=== PATIENT | female | born 1955 | race Caucasian/White ===

== ENCOUNTER 2020-05-10 13:29 | Emergency (ER) | payer OTHER ==
[2020-05-10] MEDS ORDERED: ACETAMINOPHEN 500 MG TABLET (FP) PO ONE (13:37)
[2020-05-10 13:59] VITALS: BP 132/69; PULSE 88; TEMP 99.7; BMI 26.2
[2020-05-10] MEDS ORDERED: ACETAMINOPHEN 500 MG TABLET (FP) ONE (13:59)
== END 2020-05-10 17:09 | disposition home or self-care (01) ==
LOC: FER 13:29
DX: S89.92XA Unspecified injury of left lower leg, initial encounter (principal); R26.2 Difficulty in walking, not elsewhere classified; W19.XXXA Unspecified fall, initial encounter
CPT/HCPCS: 73564-TC-LT-FY; 73590-TC-LT-FY; 73700-TC-RT; 99284-25

== ENCOUNTER 2022-09-01 16:21 | Emergency (ER) | payer OTHER ==
[2022-09-01 16:54] VITALS: BP 111/50; PULSE 100; RESP 16; TEMP 98.6; BMI 25.0
[2022-09-01] MEDS ORDERED: SODIUM CHLORIDE 0.9% 1000 ML INFUS.BAG IV ONE (17:11)
[2022-09-01] MEDS ORDERED: ONDANSETRON 4 MG/2 ML VIAL IVPUSH ONE (17:11)
[2022-09-01] MEDS ORDERED: ONDANSETRON 4 MG/2 ML VIAL ONE (17:21)
[2022-09-01 17:40] LABS: HEMATOCRIT 46.4 % (32.4-45.2); HEMOGLOBIN 15.6 G/dL (10.7-15.3); MCH 31.2 pg (25.7-33.7); MCHC 33.5 g/dl (32.0-36.0); MEAN CELL VOLUME 92.9 fl (80-96); MEAN PLT VOLUME 8.1 fl (7.5-11.1); PLATELET COUNT 303.5 10^3/uL (134-434); RBC 4.99 10^6/uL (3.60-5.2); RDW 13.8 % (11.6-15.6); WHITE BLOOD COUNT 16.2 10^3/uL (4.0-10.8)
[2022-09-01 17:52] LABS: ALBUMIN 4.3 g/dl (3.4-5.0); BILIRUBIN,TOTAL 0.5 mg/dl (0.2-1); CALCIUM 8.6 mg/dl (8.5-10); CREATININE 0.5 mg/dl (0.55-1.3); POTASSIUM 3.7 mmol/L (3.5-5.1); TOT PROT 7.4 g/dl (6.4-8.2)
[2022-09-01] MEDS ORDERED: ALBUTEROL SO4 2.5/IPRATROPIUM 0.5 INH SOL 3 ML VIAL.NEB. NEB ONE ×2 (18:37→18:43)
[2022-09-01 18:59] LABS: PLATELET ESTIMATE ADEQUATE
== END 2022-09-01 20:01 | disposition home or self-care (01) ==
LOC: FER 16:21
PROC: 3E033GC Introduction of Other Therapeutic Substance into Peripheral Vein, Percutaneous Approach (ICD-10-PCS; principal; 2022-09-01)
PROC: 3E0F7GC Introduction of Other Therapeutic Substance into Respiratory Tract, Via Natural or Artificial Opening (ICD-10-PCS; 2022-09-01)
DX: R50.9 Fever, unspecified (principal); R05.9 Cough, unspecified; R11.2 Nausea with vomiting, unspecified; R06.02 Shortness of breath; J40 Bronchitis, not specified as acute or chronic; Z20.822 Contact with and (suspected) exposure to COVID-19
CPT/HCPCS: 0241U-QW; 36415; 71046-TC-FY; 80053; 83605; 85027; 87040; 87651; 99284-25

== ENCOUNTER 2023-07-07 21:40 | Emergency (ER) | payer OTHER, MEDICARE ==
[2023-07-07 21:55] VITALS: BP 126/70; PULSE 90; RESP 16; TEMP 98.2; BMI 25.6
[2023-07-07] MEDS ORDERED: DIPHTH,PERTUSS(ACELL),TET 0.5 ML DISP.SYRIN IM ONE (21:55)
[2023-07-07] MEDS: DIPHTH,PERTUSS(ACELL),TET 0.5 ML DISP.SYRIN IM ONE (21:59)
== END 2023-07-07 23:25 | disposition home or self-care (01) ==
LOC: FER 21:40
PROC: 0WQ0XZZ Repair Head, External Approach (ICD-10-PCS; principal; 2023-07-07)
PROC: 3E0234Z Introduction of Serum, Toxoid and Vaccine into Muscle, Percutaneous Approach (ICD-10-PCS; 2023-07-07)
DX: S01.81XA Laceration without foreign body of other part of head, initial encounter (principal); W01.198A Fall on same level from slipping, tripping and stumbling with subsequent striking against other object, initial encounter; Y92.002 Bathroom of unspecified non-institutional (private) residence as the place of occurrence of the external cause
CPT/HCPCS: 12011-25; 70450-TC; 70486-TC; 72125-TC; 90471; 90715; 99284-25